=== PATIENT | male | born 1975 | race Caucasian/White ===

== ENCOUNTER 2016-08-07 21:00 | Emergency (ER) | payer MEDICAID ==
[~2016-08-07] VITALS: Ht 167.6 cm; Wt 84.8 kg
[2016-08-07 22:01] VITALS: BP 130/80; PULSE 94; RESP 14; TEMP 97.2; O2SAT 97
[2016-08-08] MEDS ORDERED: SULFAMETHOXAZOLE/TRIMETHOPR DS 1 TABLET PO ONE (02:00)
[2016-08-08 02:08] VITALS: BP 132/88; PULSE 90; RESP 17; TEMP 97.8; O2SAT 99
== END 2016-08-08 02:08 | disposition home or self-care (01) ==
LOC: SED 21:00
DX: L03.116 Cellulitis of left lower limb (principal); E11.9 Type 2 diabetes mellitus without complications; F41.9 Anxiety disorder, unspecified; F17.210 Nicotine dependence, cigarettes, uncomplicated; Z71.6 Tobacco abuse counseling
CPT/HCPCS: 99283